=== PATIENT | female | born 1995 | race Hispanic/Latino ===

== ENCOUNTER 2017-12-08 13:57 | Observation (INO) | payer OTHER ==
[~2017-12-08] VITALS: Ht 154.9 cm; Wt 55.4 kg
--- NOTE | 2017-12-08 14:31 | Diagnostic Imaging Report ---
PROCEDURE:X-RAY CHEST, ONE VIEW 1407 hrs. COMPARISON:None. INDICATIONS:CHEST PAIN FINDINGS: Cardiomediastinal silhouette is normal. No hilar lymphadenopathy. Pulmonary vascular markings are normal. Lungs are clear. Costophrenic angles are sharp. No focal osseous lesions. Soft tissues are unremarkable. CONCLUSION: No acute cardiopulmonary abnormality. Dictated by: Arsh Ibrahim M.D. on 12/08/2017 at 14:31 Electronically approved by: Arsh Ibrahim M.D. on 12/08/2017 at 14:31
[2017-12-08 15:02] LABS: BILIRUBIN,URINE NEGATIVE (NEGATIVE); COLOR,URINE YELLOW (YELLOW); KETONES,URINE NEGATIVE (NEGATIVE); LEUKOCYTE ESTERASE ,URINE 1+ (NEGATIVE); NITRITE,URINE NEGATIVE (NEGATIVE); PROTEIN,URINE DIPSTICK NEGATIVE (NEGATIVE); URINE UROBILINOGEN 0.2 mg/dL (0.2 - 1)
[2017-12-08 15:03] LABS: CLARITY,URINE SL CLOUDY (CLEAR)
[2017-12-08 15:08] LABS: BACTERIA,URINE FEW /HPF; EPITHELIAL CELLS,URINE MODERATE /LPF; MUCUS,URINE FEW (RARE); RBC,URINE 0-5 /HPF (0-5)
[2017-12-08 18:13] LABS: BASOPHILS % 0.5 % (0.0-1.0); EOSINOPHILS # (AUTO) 0.2 (0.0-0.4); EOSINOPHILS % 2.1 % (0.0-6.0); HEMOGLOBIN 14.5 g/dL (12.0-16.0); LYMPHOCYTES # (AUTO) 3.8 (1.0-3.2); LYMPHOCYTES % 45.9 % (18.0-39.1); MEAN CORPUSCULAR HEMOGLOBIN 32.4 pg (28-32); MEAN CORPUSCULAR HGB CONC 35.4 g/dL (31-35); MEAN CORPUSCULAR VOLUME 91.5 fL (81-99); MONOCYTES # (AUTO) 0.6 (0.2-0.8); MONOCYTES % 7.2 % (4.4-11.3); NEUTROPHILS # (AUTO) 3.6 (2.1-6.9); NEUTROPHILS % 44.1 % (38.7-80.0); PLATELET COUNT 229 x10e3/uL (140-360); RED BLOOD COUNT 4.48 x10e6/uL (3.6-5.1); RED CELL DISTRIBUTION WIDTH 12.3 % (11.7-14.4)
[2017-12-08 18:22] LABS: INR 1.01; PROTHROMBIN TIME 12.5 seconds (11.9-14.5)
[2017-12-08 18:23] LABS: PARTIAL THROMBOPLASTIN TIME 33.1 seconds (23.8-35.5)
[2017-12-08 18:35] LABS: ALANINE AMINOTRANSFERASE 16 IU/L (0-55); ALBUMIN 4.7 g/dL (3.5-5.0); ALBUMIN/GLOBULIN RATIO 1.3 (0.8-2.0); ALKALINE PHOSPHATASE 63 IU/L (40-150); ANION GAP 14.7 mmol/L (8-16); BLOOD UREA NITROGEN 12 mg/dL (7-26); BUN/CREATININE RATIO 17 (6-25); CALCIUM 9.6 mg/dL (8.4-10.2); CARBON DIOXIDE 23 mmol/L (22-29); CHLORIDE 107 mmol/L (98-107); CREATINE KINASE 2116 IU/L (29-168); CREATININE, SERUM 0.72 mg/dL (0.57-1.11); EST GLOMERULAR FILTRATION RATE > 60 ML/MIN (60-); GLUCOSE 90 mg/dL (74-118); POTASSIUM 3.7 mmol/L (3.5-5.1); SODIUM 141 mmol/L (136-145)
[2017-12-08] MEDS ORDERED: KETOROLAC TROMETHAMINE 30 MG/ML VIAL IV STA (18:52)
[2017-12-08] MEDS ORDERED: SODIUM CHLORIDE 0.9% 1000ML 1,000 ML IV STA (19:04)
[2017-12-08 19:24] LABS: AMPHETAMINES SCREEN,URINE NEGATIVE (NEGATIVE); BENZODIAZEPINES SCREEN,URINE NEGATIVE (NEGATIVE); PHENCYCLIDINE SCREEN,URINE NEGATIVE (NEGATIVE)
[2017-12-08] MEDS ORDERED: SODIUM CHLORIDE 0.9% 50ML 50 ML ONE (20:41)
[2017-12-08] MEDS ORDERED: IOPAMIDOL 370 MG/ML 200 ML INFUS..BTL INJ ONE (20:41)
--- NOTE | 2017-12-08 20:45 | Diagnostic Imaging Report ---
EXAMINATION: CT scan of the chest with contrast. TECHNIQUE: Helical CT images of the chest were performed from the lung apices to the level of the adrenal glands after the intravenous administration of 100 cc of Isovue 300. Coronal and sagittal reformatted images were obtained. COMPARISON: None. CLINICAL HISTORY:High blood pressure DISCUSSION: LINES/TUBES: None. LUNGS AND AIRWAYS: The lungs are clear. No pulmonary nodules, masses or consolidation. The airways are normal, without endobronchial lesions. PLEURA: No pneumothorax or pleural effusions. HEART AND MEDIASTINUM: The thyroid gland is normal. The heart and pericardium are within normal limits. LYMPH NODES: There is no mediastinal, hilar or axillary lymphadenopathy. ABDOMEN: Limited contrast-enhanced views of the upper abdomen show no abnormality within the visualized liver, spleen, pancreas, or kidneys. The adrenal glands are normal. BONES AND SOFT TISSUES: No acute bony abnormalities. IMPRESSION: No pulmonary embolism. Signed by: Dr. Rebel Dowd M.D. on 12/08/2017 8:41 PM
[2017-12-08] MEDS ORDERED: ASPIRIN 81 MG CHEW TAB PO ONE (21:45)
--- OUTSIDE RECORDS SUMMARY | 2017-12-08 22:27 | XMS REPORT ---
Author Author [facility] Address Unknown Phone Unavailable Care Team Providers Care Human Resources Executive Assistant Name Role Phone KAY VAUGHN Unavailable Unavailable Problems This patient has no known problems. Allergies, Adverse Reactions, Alerts This patient has no known allergies or adverse reactions. Medications This patient has no known medications. Results Test Description Test Time Test Comments Text Results Atomic Results Result Comments CT CHEST W [place] [id number] Patient Name: ROSEMARIE PORTER MR #: [id number] : 1995 Age/Sex: 22/F Req # : [id number] Adm Physician: Ordered by: DALIA WALSH [employer]CHIV[employer] Report #: [id number] Location: ER Room/Bed: Procedure: [id number] CT/CT CHEST W Exam Date: Exam Time: REPORT STATUS: Signed EXAMINATION: CT scan of the chest with contrast. TECHNIQUE: Helical CT images of the chest were performed from the lung apices to the level of the adrenal glands after the intravenous administration of 100 cc of Isovue 300. Coronal and sagittal reformatted images were obtained. COMPARISON: None. CLINICAL HISTORY:High blood pressure DISCUSSION: LINES/TUBES: None. LUNGS AND AIRWAYS: The lungs are clear. No pulmonary nodules, masses or consolidation. The airways are normal, without endobronchial lesions. PLEURA: No pneumothorax or pleural effusions. HEART AND MEDIASTINUM: The thyroid gland is normal. The heart and pericardium are within normal limits. LYMPH NODES: There is no mediastinal, hilar or axillary lymphadenopathy. ABDOMEN: Limited contrast- enhanced views of the upper abdomen show no abnormality within the visualized liver, spleen, pancreas, or kidneys. The adrenal glands are normal. BONES AND SOFT TISSUES: No acute bony abnormalities. IMPRESSION: No pulmonary embolism. Signed by: Dr. Rodrigo Almeida M.D. on 12/08/2017 8:41 PM Dictated By: RODRIGO ALMEIDA MD 40 Transcribed By: DORI on 12/08/172040 COPY TO: DALIA WALSH NP CHEST SINGLE (NOT PORTABLE) [place] [id number] Patient Name: ROSEMARIE PORTER MR #: [id number] : 1995 Age/Sex: 22/F Req #: [id number] Adm Physician: Ordered by: KAY VAUGHN MD Report #: [id number] Location: ER Room/Bed: Procedure: [id number] DX/CHEST SINGLE (NOT PORTABLE) Exam Date: 12/08/17 Exam Time: 1410 REPORT STATUS: Signed PROCEDURE: X-RAY CHEST, ONE VIEW 1407 hrs. COMPARISON: None. INDICATIONS: CHEST PAIN FINDINGS: Cardiomediastinal silhouette is normal. No hilar lymphadenopathy. Pulmonary vascular markings are normal. Lungs are clear. Costophrenic angles are sharp. No focal osseous lesions. Soft tissues are unremarkable. CONCLUSION: No acute cardiopulmonary abnormality. Dictated by: Edna Ibrahim M.D. on 2017 at 14:31 Electronically approved by: Edna Ibrahim M.D. on 2017 at 14:31 Dictated By: EDNA IBRAHIM MD 1432 Transcribed By : AILEEN on 12/08/17 1432 COPY TO: KAY VAUGHN MD
[2017-12-08 23:04] VITALS: BP 106/60
[2017-12-08] MEDS: SODIUM CHLORIDE 0.9% 1000ML 1,000 ML IV SCH (23:04)
[2017-12-08 23:10] VITALS: BP 106/60
[2017-12-09] VITALS (7 sets, daily range): BP systolic 88–110; BP diastolic 54–70
[2017-12-09] MEDS: SODIUM CHLORIDE 0.9% 1000ML 1,000 ML IV SCH ×3 (04:10→16:15)
[2017-12-09] MEDS: MORPHINE SULFATE 2 MG/ML SYR IV PRN ×2 (04:10→08:46)
[2017-12-09] MEDS: ONDANSETRON HCL INJ 2 MG/ML VIAL IV PRN ×2 (04:10→08:46)
[2017-12-09 04:29] LABS: BASOPHILS % 0.5 % (0.0-1.0); EOSINOPHILS # (AUTO) 0.2 (0.0-0.4); EOSINOPHILS % 2.7 % (0.0-6.0); HEMATOCRIT 35.6 % (34.2-44.1); HEMOGLOBIN 12.4 g/dL (12.0-16.0); LYMPHOCYTES # (AUTO) 3.7 (1.0-3.2); LYMPHOCYTES % 49.9 % (18.0-39.1); MEAN CORPUSCULAR HEMOGLOBIN 32.5 pg (28-32); MEAN CORPUSCULAR HGB CONC 34.8 g/dL (31-35); MEAN CORPUSCULAR VOLUME 93.2 fL (81-99); MONOCYTES # (AUTO) 0.7 (0.2-0.8); MONOCYTES % 9.7 % (4.4-11.3); NEUTROPHILS # (AUTO) 2.7 (2.1-6.9); NEUTROPHILS % 37.1 % (38.7-80.0); PLATELET COUNT 187 x10e3/uL (140-360); RED BLOOD COUNT 3.82 x10e6/uL (3.6-5.1); RED CELL DISTRIBUTION WIDTH 12.3 % (11.7-14.4)
[2017-12-09 04:50] LABS: ALANINE AMINOTRANSFERASE 13 IU/L (0-55); ALBUMIN 3.5 g/dL (3.5-5.0); ALBUMIN/GLOBULIN RATIO 1.3 (0.8-2.0); ALKALINE PHOSPHATASE 49 IU/L (40-150); ANION GAP 10.7 mmol/L (8-16); BLOOD UREA NITROGEN 11 mg/dL (7-26); BUN/CREATININE RATIO 18 (6-25); CALCIUM 8.2 mg/dL (8.4-10.2); CARBON DIOXIDE 21 mmol/L (22-29); CHLORIDE 113 mmol/L (98-107); CREATINE KINASE 1462 IU/L (29-168); CREATININE, SERUM 0.61 mg/dL (0.57-1.11); EST GLOMERULAR FILTRATION RATE > 60 ML/MIN (60-); GLUCOSE 106 mg/dL (74-118); POTASSIUM 3.7 mmol/L (3.5-5.1); SODIUM 141 mmol/L (136-145)
[2017-12-09] MEDS ORDERED: INFLUENZA VIRUS VAC SPLIT INJ 0.5 ML SYR IM ONE (08:00)
[2017-12-09] MEDS ORDERED: ONDANSETRON HCL INJ 2 MG/ML VIAL IV PRN (12:00)
[2017-12-09] MEDS ORDERED: MAALOX/LIDOCAINE/BENADRYL 120 ML BTL PO ONE (12:45)
--- NOTE | 2017-12-09 13:45 | Consultation ---
DATE OF CONSULTATION: December 09, 2017 CARDIOLOGY CONSULTATION REASON FOR CONSULTATION: Chest pain. HISTORY OF PRESENT ILLNESS: Ms. Welch is a 22-year-old lady who is otherwise relatively very healthy. She was in her usual state of health up until about 3 to 4 weeks ago had the flu. She has recovered from that process. However, in the past 4 days she has noted a progressively worsening chest pain and difficulty taking in a deep breath on account of her chest pain. She describes the pain as a pressure that radiates her entire chest wall region, exacerbated by certain positions and is largely continuous today. This has been escalating over the last 4 days, and as a result of the pain she finds it increasingly difficult to take a deep breath in and is feeling fatigued and short of breath doing activities. She was evaluated with thus far cardiac enzymes x2 which were strongly negative for any cardiac damage and EKG which showed no significant abnormalities. She was noted to have some mild CK elevation at 2116 that has come down to 1462. She, due to some pleuritic nature of her chest pain, was evaluated with the CTV protocol by primary team and was negative for acute pulmonary embolism. Chest x-ray was unremarkable. Patient on my visit today continues to have chest pain, and I asked about dysphagia and does report that when she swallows it feels like something gets stuck in her throat and the pain is exacerbated. She also reports that sometimes leaning backwards makes the pain worse and sometimes leaning forward makes the pain a little bit better. PAST MEDICAL HISTORY: None. PAST SURGICAL HISTORY: None. FAMILY HISTORY: Father is alive with hypertension. A grandfather has hypertension. There is no premature family history of heart disease, no history of congenital heart disease and no history of sudden cardiac in the family. SOCIAL HISTORY: She is a lifelong nonsmoker, has occasional rare alcohol use with last drink over 3 weeks ago, denies any illicit drug use. ALLERGIES: NO KNOWN DRUG ALLERGIES. HOME MEDICATIONS: None. REVIEW OF SYSTEMS GENERAL: Denies any fevers, chills or any weight changes. HEENT: Has occasional headache. No visual complaints, sore throat, stuffy nose. RESPIRATORY: Pleuritic chest pain as noted above. No cough, no wheezing. CARDIOVASCULAR: As per HPI. Denies any palpitations, syncope or near syncope. GI: Denies any nausea. Does report dysphagia as noted above. No bright red blood per rectum, melena, diarrhea, constipation. : Denies any dysuria or changes in urinary frequency. MUSCULOSKELETAL: Denies any muscle aches, knee pains, any trauma or swelling. HEMATOLOGY: No easy bruising or bleeding. ENDOCRINE: No known diabetes or thyroid problems. NEUROLOGIC: Denies any focal weakness, numbness, tingling, seizures, history of TIA or stroke. REMAINDER: Negative otherwise mentioned. PHYSICAL EXAMINATION VITAL SIGNS: Height of 61 inches, weight of 122 pounds. BMI is 23. Temperature of 97.6, pulse of 77, respiratory rate of 18, blood pressure of 110/68, O2 sat 100% on room air. IN GENERAL: This is a well-nourished, well-developed lady who currently appears in mild to moderate distress due to her chest pain. HEENT: Normocephalic, atraumatic. Extraocular movements are intact. Pupils are equally round and reactive to light. Oropharynx is clear. NECK: No elevation of jugular venous pulsation. No carotid bruits. CARDIOVASCULAR: Regular in rate and rhythm. Normal S1 and S2. No murmurs. There is no provocative rub with positioning. LUNGS: Notable for stuttering while she takes a deep breath in on account of chest pain, but sounds otherwise clear to auscultation. There seems to be some splinting. ABDOMEN: There is significant discomfort in the midepigastric region that reproduces the chest pain in question. BACK: No costovertebral angle tenderness. EXTREMITIES: Warm with 2+ bilateral radial pulses, 2+ bilateral femoral pulses, 2+ pedal pulses. There is no edema. NEUROLOGIC: Cranial nerves 2-12 are intact. Strength is 5/5. She is nonfocal. LABS: White count of 7.4, hemoglobin 12.4, hematocrit 35.6, platelets of 187. Sodium 141, potassium 3.7, chloride 113, bicarb 21, BUN 11, creatinine 0.61, glucose of 106, calcium of 8.2. AST 27, ALT 13, alk phos 49, total protein 6.2, albumin of 3.5. INR is 1.01. UDS is negative. UA shows 0-5 red cells, 6-10 white cells. Chest x-ray is unremarkable. Chest CT is negative for PE. EKG reveals normal sinus rhythm, normal axis and no ST-T wave changes. Cardiac enzymes show a CK-MB of 1.7 that went down to 1.3, and troponin is less than 0.001 x2. DIAGNOSES 1. Chest pain with most likely differential diagnosis being esophagitis versus pleuritis. 2. Mildly elevated CK most suggestive of rhabdomyolysis, perhaps secondary to slight dehydration and immobility. 3. Recent flu-like illness 3 to 4 weeks ago. 4. Dysphagia. PLAN/RECOMMENDATIONS 1. From a cardiovascular standpoint, will check echocardiogram to evaluate her heart structurally, make sure there are no wall motion abnormalities or valvular issues. 2. Patient is due for 1 more set of cardiac enzymes but, by history, symptoms are not suggestive of angina per se and unlikely acute coronary syndrome picture. 3. I have instructed nursing to give a trial of milk of magnesia, GI cocktail, to see if this resolves her chest pain syndrome. If so, this will lead to more of a GI source. 4. If GI treatment is negative for any improvement, then perhaps we are dealing with some pleurisy-type process that may benefit from nonsteroidals or an anti-inflammatory therapy. 5. Will continue to follow this patient with you. Thank you for this referral. Job#: [id number] EV
[2017-12-09] MEDS ORDERED: SIMETHICONE PO NR ×3 (14:00)
[2017-12-09] MEDS ORDERED: ALUM PO NR ×3 (14:00)
[2017-12-09] MEDS ORDERED: MAGNESIUM PO NR ×3 (14:00)
[2017-12-09] MEDS ORDERED: [UNRECOGNIZED DRUG - OTHER] PO NR ×3 (14:00)
[2017-12-09] MEDS ORDERED: DIPHENHYDRAMINE HCL PO NR ×3 (14:00)
[2017-12-09] MEDS ORDERED: KETOROLAC TROMETHAMINE 30 MG/ML VIAL IV SCH (15:00)
[2017-12-09] MEDS ORDERED: KETOROLAC TROMETHAMINE 30 MG/ML VIAL IV PRN (15:15)
[2017-12-09] MEDS ORDERED: IBUPROFEN 600 MG TAB PO PRN (16:15)
[2017-12-09 17:49] LABS: CREATINE KINASE 1529 IU/L (29-168)
[2017-12-10] VITALS: BP 94/58
[2017-12-10 04:00] VITALS: BP 91/53
[2017-12-10 07:51] LABS: ANION GAP 11.4 mmol/L (8-16); BLOOD UREA NITROGEN 11 mg/dL (7-26); BUN/CREATININE RATIO 18 (6-25); CALCIUM 8.6 mg/dL (8.4-10.2); CARBON DIOXIDE 22 mmol/L (22-29); CHLORIDE 111 mmol/L (98-107); CREATINE KINASE 1204 IU/L (29-168); CREATININE, SERUM 0.62 mg/dL (0.57-1.11); EST GLOMERULAR FILTRATION RATE > 60 ML/MIN (60-); GLUCOSE 92 mg/dL (74-118); POTASSIUM 4.4 mmol/L (3.5-5.1); SODIUM 140 mmol/L (136-145)
[2017-12-10 07:55] VITALS: BP 96/52
[2017-12-10] MEDS ORDERED: IBUPROFEN 600 MG TAB PO SCH (08:00)
[2017-12-10 08:10] LABS: THYROID STIMULATING HORMONE 2.274 uIU/mL (0.350-4.940)
[2017-12-10] MEDS: SODIUM CHLORIDE 0.9% 1000ML 1,000 ML IV SCH ×2 (09:04)
[2017-12-10 09:12] VITALS: BP 96/52
--- NOTE | 2017-12-10 10:39 | Discharge Summary ---
PRIMARY CARE DOCTOR: Dr. Jewell Sanford FINAL DIAGNOSIS: Pericarditis. SECONDARY DIAGNOSES 1. Mild rhabdomyolysis. 2. Mild metabolic acidosis, resolved. CONSULTANTS: Dr. Coronado, cardiology. PROCEDURES/STUDIES PERFORMED: Computerized tomography of the chest was negative for pulmonary embolism. HISTORY: Per [facility] HOSPITAL COURSE: The patient was admitted. She was hydrated. Her CPK came down appropriately. As far as her chest pain, she had a viral illness about a month ago. She responded to NSAIDs very nicely. The patient will go home on another 2 weeks of 600 mg ibuprofen t.i.d. with meals. Echocardiogram was done. However, I do not have the reading at this time. The metal cut off saw operator will let me know if there is anything abnormal. Her ESR is normal. Most likely, we are not dealing with any autoimmune process. The patient was seen and examined today. CONDITION ON DISCHARGE: Stable. DISCHARGE MEDICATIONS: Please see medication reconciliation form. I have updated her primary care doctor about this hospitalization. Also, I have discussed with the metal cut off saw operator today. SABAS JUSTICE M.D. Job#: [id number] RI cc: JEWELL SANFORD MD
[2017-12-10] MEDS ORDERED: IBUPROFEN600 MG PO (11:14)
== END 2017-12-10 11:28 | disposition home or self-care (01) ==
LOC: ER 13:57 → EDBEDREQ 22:23 → ERHOLD 22:24 → MED/SURG 22:54
PROVIDERS: ADMIT Internal Medicine; ATTEND Internal Medicine
DX: I31.9 Disease of pericardium, unspecified (principal); R07.89 Other chest pain; M62.82 Rhabdomyolysis; I10 Essential (primary) hypertension; E87.2 Acidosis; R13.10 Dysphagia, unspecified; R09.1 Pleurisy
CPT/HCPCS: 36415; 71045; 71260; 80048; 80053; 80307; 81001; 81025; 82550; 82553; 84443; 84484; 85025; 85610; 85651; 85730; 86140; 93005; 93306; 96361; 99284; G0378; J1885; J2270; J2405; J7030; Q9967